=== PATIENT | female | born 1990 | race Caucasian/White ===

== ENCOUNTER 2016-12-05 16:45 | Outpatient (CLI) | payer BC ==
[~2016-12-05] VITALS: Ht 152.4 cm; Wt 102.5 kg
[~2016-12-05 16:45] MED LIST: NORCO 325 MG-51 TAB PO; PRENATAL PO
[2016-12-05 17:01] VITALS: BP 125/66; PULSE 115; TEMP 98.2
[2016-12-05 17:20] VITALS: BP 118/68; PULSE 109
[2016-12-05 17:45] VITALS: BP 115/66; PULSE 115
[2016-12-29] MEDS ORDERED: VALTREX 50500 MG/TAB PO (15:13)
[2016-12-29] MEDS ORDERED: ZOFRAN 4MG T4 MG/TAB PO (15:14)
== END 2016-12-05 17:50 | disposition home or self-care (01) ==
LOC: LDRO 16:45
DX: O36.8120 Decreased fetal movements, second trimester, not applicable or unspecified (principal); O30.002 Twin pregnancy, unspecified number of placenta and unspecified number of amniotic sacs, second trimester; O99.212 Obesity complicating pregnancy, second trimester; Z3A.26 26 weeks gestation of pregnancy

== ENCOUNTER 2016-12-29 15:38 | Outpatient (CLI) | payer BC ==
[~2016-12-29] VITALS: Ht 157.5 cm; Wt 107.3 kg
[2016-12-29 15:03] VITALS: BP 136/87; PULSE 106; TEMP 99.1
[~2016-12-29 15:38] MED LIST changes: +VALTREX 50500 MG/TAB PO; +ZOFRAN 4MG T4 MG/TAB PO
[2016-12-29 16:00] VITALS: BP 136/87; PULSE 106; TEMP 99.1
[2016-12-29 16:07] LABS: BASO % 0.2 % (0.0-2.0); EOS # 0.1 (0.0-0.7); EOS % 1.1 % (0-4.0); GRAN # 8.9 (1.4-6.5); GRAN % 75.5 % (42.2-75.2); HEMATOCRIT 35.2 % (37.0-47.0); HEMOGLOBIN 11.9 g/dl (12.5-16.0); LYMPH # 2.1 (1.2-3.4); LYMPH % 17.9 % (20.0-51.0); MEAN CELL VOLUME 91 fl (80.0-100.0); MEAN CORPUSCULAR HEMOGLOBIN 31 pg (27.0-31.0); MEAN CORPUSCULAR HGB CONC 34 g/dl (33.0-37.0); MONO # 0.6 (0.1-0.6); PLATELET COUNT 259 K/mm3 (130-400); RED BLOOD COUNT 3.85 M/mm3 (4.10-5.30); REDCELL DISTRIBUTION WIDTH-CV 12.9 % (11.5-14.5); WHITE BLOOD COUNT 11.8 K/mm3 (4.8-10.8)
[2016-12-29 16:21] LABS: ALBUMIN 3.4 gm/dL (3.5-5.0); BILIRUBIN,TOTAL 0.5 mg/dL (0.0-1.0); CALCIUM 9.5 mg/dL (8.4-10.2); CREATININE, serum 0.49 mg/dL (0.52-1.25); TOTAL PROTEIN 6.7 gm/dL (6.4-8.2)
[2016-12-29 16:30] VITALS: BP 152/86; PULSE 108
[2016-12-29 17:00] VITALS: BP 138/91; PULSE 112
== END 2016-12-29 17:00 | disposition short-term general hospital (02) ==
LOC: LDRO 15:38 → LDR 15:48 → LDRO 15:48
PROVIDERS: Obstetrics & Gynecology
DX: O42.913 Preterm premature rupture of membranes, unspecified as to length of time between rupture and onset of labor, third trimester (principal); Z3A.29 29 weeks gestation of pregnancy
CPT/HCPCS: J0290; J0702; J1364; J3475; J7120